=== PATIENT | male | born 1950 | race Hispanic/Latino ===

== ENCOUNTER → 2019-11-18 | Outpatient (CLI) | payer OTHER, MEDICARE ==
[~2019-11-18] MED LIST: ATORVASTATIN CA20 MG PO; IBUPROFEN400 MG PO
--- NOTE | 2019-11-18 16:44 | Diagnostic Imaging Report ---
EXAMINATION: KNEE RIGHT 1-2 VIEWS, KNEES STANDING AP VIEW INDICATION: Osteoarthritis COMPARISON: None FINDINGS: AP, lateral and sunrise views of the right knee demonstrate no acute fracture or dislocation. Alignment appears anatomic. No substantial degenerative change. No joint effusion. Standing AP view of the left knee demonstrates mild medial compartment degenerative changes. No acute osseous injury. IMPRESSION: No acute osseous injury. Mild left knee medial compartment degenerative changes. Signed by: Rafita Guan MD on 11/18/2019 4:41 PM
== END ==
LOC: RAD 15:53
PROVIDERS: ATTEND Specialist
DX: M17.11 Unilateral primary osteoarthritis, right knee (principal)
CPT/HCPCS: 73565

== ENCOUNTER → 2019-11-18 | Outpatient (CLI) | payer OTHER, MEDICARE ==
[2019-11-18 15:28] LABS: BASOPHILS # (AUTO) 0.1 (0.0-0.1); BASOPHILS % 0.9 % (0.0-1.0); EOSINOPHILS # (AUTO) 0.4 (0.0-0.4); EOSINOPHILS % 6.3 % (0.0-6.0); HEMATOCRIT 39.6 % (38.2-49.6); HEMOGLOBIN 13.6 g/dL (14.0-18.0); LYMPHOCYTES # (AUTO) 1.6 (1.0-3.2); MEAN CORPUSCULAR HEMOGLOBIN 29.4 pg (28-32); MEAN CORPUSCULAR HGB CONC 34.3 g/dL (31-35); MEAN CORPUSCULAR VOLUME 85.5 fL (81-99); MONOCYTES # (AUTO) 0.5 (0.2-0.8); MONOCYTES % 8.4 % (4.4-11.3); NEUTROPHILS # (AUTO) 3.1 (2.1-6.9); NEUTROPHILS % 56.2 % (38.7-80.0); PLATELET COUNT 205 x10e3/uL (140-360); RED BLOOD COUNT 4.63 x10e6/uL (4.3-5.7); RED CELL DISTRIBUTION WIDTH 13.6 % (11.7-14.4)
[2019-11-18 15:36] LABS: CLARITY,URINE SL CLOUDY (CLEAR); COLOR,URINE YELLOW (YELLOW); KETONES,URINE TRACE (NEGATIVE); LEUKOCYTE ESTERASE ,URINE NEGATIVE (NEGATIVE); NITRITE,URINE NEGATIVE (NEGATIVE); PROTEIN,URINE DIPSTICK NEGATIVE (NEGATIVE); URINE UROBILINOGEN 0.2 mg/dL (0.2 - 1)
[2019-11-18 15:37] LABS: BILIRUBIN,URINE NEGATIVE (NEGATIVE)
[2019-11-18 15:46] LABS: ANION GAP 11.1 mmol/L (8-16); BLOOD UREA NITROGEN 14 mg/dL (7-26); BUN/CREATININE RATIO 13 (6-25); CALCIUM 9.8 mg/dL (8.4-10.2); CARBON DIOXIDE 27 mmol/L (22-29); CHLORIDE 105 mmol/L (98-107); CREATININE, SERUM 1.07 mg/dL (0.72-1.25); EST GLOMERULAR FILTRATION RATE > 60 ML/MIN (60-); GLUCOSE 97 mg/dL (74-118); POTASSIUM 4.1 mmol/L (3.5-5.1); SODIUM 139 mmol/L (136-145)
--- NOTE | 2019-11-18 16:43 | Diagnostic Imaging Report ---
EXAMINATION: CHEST 2 VIEWS INDICATION: Pre-operative COMPARISON: None FINDINGS: LINES/TUBES:None LUNGS:There are diffuse nodular opacities throughout both lungs in a miliary distribution. PLEURA:No pleural effusion or pneumothorax. MEDIASTINUM:The cardiomediastinal silhouette appears normal in size and shape. BONES/SOFT TISSUES:No acute osseous injury. ABDOMEN:No free air under the diaphragm. IMPRESSION: Diffuse bilateral pulmonary nodules in a miliary distribution which may represent atypical infectious etiologies versus diffuse hematogenous metastatic disease. Recommend further evaluation with chest CT. Signed by: Rafita Guan MD on 11/18/2019 4:39 PM
== END ==
LOC: DX 14:13 → EDSTATUS 11-22 12:30
PROVIDERS: ATTEND Specialist
DX: Z01.818 Encounter for other preprocedural examination (principal); M17.11 Unilateral primary osteoarthritis, right knee; Z53.8 Procedure and treatment not carried out for other reasons
CPT/HCPCS: 36415; 71046; 80048; 81003; 85025; 86850; 86900; 86920; 93005

== ENCOUNTER → 2019-11-18 | Outpatient (CLI) | payer OTHER | LOC: RAD 14:32 | PROVIDERS: ATTEND Specialist | DX: M17.11 Unilateral primary osteoarthritis, right knee (principal) ==

== ENCOUNTER 2020-02-15 06:46 | Observation (INO) | payer OTHER ==
[2020-02-10 14:48] LABS: BASOPHILS # (AUTO) 0.1 (0.0-0.1); BASOPHILS % 1.1 % (0.0-1.0); EOSINOPHILS # (AUTO) 0.4 (0.0-0.4); EOSINOPHILS % 5.4 % (0.0-6.0); HEMATOCRIT 42.2 % (38.2-49.6); HEMOGLOBIN 14.2 g/dL (14.0-18.0); LYMPHOCYTES # (AUTO) 1.9 (1.0-3.2); LYMPHOCYTES % 26.6 % (18.0-39.1); MEAN CORPUSCULAR HEMOGLOBIN 28.6 pg (28-32); MEAN CORPUSCULAR HGB CONC 33.6 g/dL (31-35); MEAN CORPUSCULAR VOLUME 84.9 fL (81-99); MONOCYTES # (AUTO) 0.5 (0.2-0.8); MONOCYTES % 7.4 % (4.4-11.3); NEUTROPHILS # (AUTO) 4.2 (2.1-6.9); NEUTROPHILS % 59.2 % (38.7-80.0); PLATELET COUNT 222 x10e3/uL (140-360); RED BLOOD COUNT 4.97 x10e6/uL (4.3-5.7); RED CELL DISTRIBUTION WIDTH 13.4 % (11.7-14.4)
[2020-02-10 14:50] LABS: CLARITY,URINE CLEAR (CLEAR); COLOR,URINE YELLOW (YELLOW)
[2020-02-10 14:51] LABS: BILIRUBIN,URINE NEGATIVE (NEGATIVE); KETONES,URINE NEGATIVE (NEGATIVE); LEUKOCYTE ESTERASE ,URINE NEGATIVE (NEGATIVE); NITRITE,URINE NEGATIVE (NEGATIVE); PROTEIN,URINE DIPSTICK NEGATIVE (NEGATIVE); URINE UROBILINOGEN 0.2 mg/dL (0.2 - 1)
[2020-02-10 15:05] LABS: BLOOD UREA NITROGEN 14 mg/dL (7-26); BUN/CREATININE RATIO 15 (6-25); CALCIUM 9.7 mg/dL (8.4-10.2); CARBON DIOXIDE 20 mmol/L (22-29); CHLORIDE 107 mmol/L (98-107); CREATININE, SERUM 0.95 mg/dL (0.72-1.25); EST GLOMERULAR FILTRATION RATE > 60 ML/MIN (60-); GLUCOSE 98 mg/dL (74-118); SODIUM 136 mmol/L (136-145)
[~2020-02-15] VITALS: Ht 180.3 cm; Wt 128.5 kg
[2020-02-15] MEDS ORDERED: CLINDAMYCIN PHOS 900MG/ 50ML 50 ML IV ONE (07:20)
[2020-02-15] MEDS ORDERED: BACITRACIN 50,000 UNIT VIAL ONE (10:20)
[2020-02-15] MEDS ORDERED: IBUPROFEN 800MG/ 200ML 200 ML IV ONE (13:51)
[2020-02-15] MEDS ORDERED: SODIUM CHLORIDE 0.9% 1000ML 1,000 ML IV SCH (15:00)
[2020-02-15] MEDS ORDERED: HYDROMORPHONE 0.2MG/ML-SOD CHL 30ML PCA SYRINGE IV PRN (15:00)
[2020-02-15] MEDS ORDERED: ONDANSETRON HCL INJ 2MG/ML 2ML 2 MG/ML VIAL IV PRN (15:00)
[2020-02-15] MEDS ORDERED: HYDROMORPHONE 2MG/ML 2 MG/ML ML ONE (15:22)
[2020-02-15 16:00] VITALS: BP 108/63
--- NOTE | 2020-02-15 16:00 | NUR ---
Pt received from PACU at this time. Pt is aox3 and able to verbalize needs. Pt had right total knee done this afternoon. Pt is on FLOAT TENDER pump at this time with dilaudid. Dressing to right knee is dry and intact.
--- NOTE | 2020-02-15 16:03 | NUR ---
FAXED POST OP REPORT TO [facility] PER REQUEST OF [facility] TO [phone]
--- NOTE | 2020-02-15 16:04 | NUR ---
CONFIRMED DME WITH [employer] FROM [employer], CPM, WALKER , ELEVATED TOILET SEAT AND 3 IN
[2020-02-15 16:26] VITALS: BP 108/63
[2020-02-15] MEDS ORDERED: ACETAMINOPHEN 1000 MG/100 ML IV PRN (18:00)
[2020-02-15] MEDS ORDERED: DEXAMETHASONE SOD PHOS INJ 4 MG/ML VIAL ONE (18:43)
[2020-02-15] MEDS ORDERED: ACETAMINOPHEN 1000 MG/100 ML IV ONE (18:43)
[2020-02-15] MEDS ORDERED: PROPOFOL IV EMULSION 10 MG/ML 20 ML VIAL ONE (18:43)
[2020-02-15] MEDS ORDERED: SEVOFLURANE INHAL SOLN 250 ML PEN BTL ONE (18:43)
[2020-02-15] MEDS ORDERED: LIDOCAINE HCL 2% LOCAL INJ 5 ML SDV VIAL INJ ONE (18:43)
[2020-02-15] MEDS ORDERED: EPHEDRINE SULFATE INJ 50 MG/ML VIAL ONE (18:43)
[2020-02-15] MEDS ORDERED: ONDANSETRON HCL INJ 2MG/ML 2ML 2 MG/ML VIAL ONE (18:43)
--- NOTE | 2020-02-15 19:00 | NUR ---
RECEIVED REPORT FROM PREVIOUS NURSE. CALL LIGHT WITHIN REACH. PATIENT IN BED. BACKUP ENGINEER PUMP ACTIVE.
--- NOTE | 2020-02-15 19:16 | Diagnostic Imaging Report ---
EXAM: KNEE RIGHT 1-2 VIEWS DATE: 02/15/2020 4:57 PM INDICATION: ^POST OP ^[id number] ^[id number] ^IN PACU COMPARISON: Right knee, 11/18/2019 FINDINGS: Interval right knee arthroplasty with intact appearing tibial and femoral components. No displaced fractures. Skin amanda are seen over the anterior knee with a small amount of air in the subcutaneous tissues and joint space compatible with recent surgery. There is a small linear density projected inferior to the patella on the lateral view, projected in the soft tissues on AP view. Findings were discussed with Dr. Morales on 02/15/2020 at 7:00 PM. IMPRESSION: Interval right knee arthroplasty. A small linear density or object is projected in the soft tissues inferior to the patella. Signed by: Dr. Laz Rawls M.D. on 02/15/2020 7:13 PM
--- NOTE | 2020-02-15 19:45 | NUR ---
Dictated consult: [id number]
[2020-02-15 20:00] VITALS: BP 112/75
[2020-02-15] MEDS: CLINDAMYCIN PHOS 900MG/ 50ML 50 ML IV SCH (20:03)
--- NOTE | 2020-02-15 20:10 | Consultation ---
DATE OF CONSULTATION: 02/15/2020 REASON FOR CONSULTATION: Medical management. HISTORY OF PRESENT ILLNESS: This is a 69-year-old white man, who presented to [facility] with diagnosis of advanced right knee degenerative joint disease. Today, the patient underwent right total knee arthroplasty that was performed by Dr. Yosvany Morales. The patient currently voiced no complaints. The patient underwent a complete blood count and basic metabolic profile on February 10, 2020 and they were both unremarkable. REVIEW OF SYSTEMS: GENERAL: Weight has been stable. No fever or chills. HEENT: No headaches. No visual changes. CARDIOVASCULAR/RESPIRATORY: No chest pain. No short of breath or cough. GI: No nausea, vomiting, diarrhea, or constipation. : No UTI or BPH symptoms. Cee catheter is removed. NEUROMUSCULAR: He does have some pain in his right knee. ALLERGIES: PENICILLIN. FAMILY HISTORY: Father of leukemia. SOCIAL HISTORY: He is and lives with his . 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 The patient states he drinks socially, but has not drank much alcohol since October 2019. The patient states he does chew tobacco. SURGICAL HISTORY: 1. Right total knee replacement today. 2. Right ankle open reduction and internal fixation at 22. 3. 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 PAST MEDICAL HISTORY: 1. Right knee degenerative joint disease. 2. Obesity. 3. Hyperlipidemia. MEDICATIONS: 1. Atorvastatin 20 mg at bedtime. 2. Ibuprofen 800 mg q.6 hours p.r.n. pain. PHYSICAL EXAMINATION: GENERAL: He is awake, alert, and fully oriented. He is very pleasant, cooperative. VITAL SIGNS: Height 5 feet 11 inches, weighs 278 pounds, BMI 38. Blood pressure 108/64, pulse 84, respiratory rate 18, temperature 97.6, and oxygen saturation 96% on room air. INTEGUMENT: Skin is warm and dry. No pallor, jaundice, or diaphoresis. HEENT: Anicteric sclerae with moist mucous membranes. NECK: Supple. CARDIOVASCULAR: Distant heart sounds. Regular rate and rhythm. LUNGS: No rales. No rhonchi. No wheezes. ABDOMEN: Benign. EXTREMITIES: His right lower extremity is currently in a continuous passive motion machine. No edema in legs. NEUROLOGIC: Intact. IMPRESSION: 1. Status post right total knee arthroplasty. 2. Obesity. BMI 38. PLAN: 1. Mobilize therapy. 2. Enoxaparin or Xarelto to prevent deep venous thrombosis. 3. Encourage incentive spirometer usage to prevent atelectasis for pain control. 4. Pain control. I would like to thank, Dr. Yosvany Morales, for this generous consult. I spent 40 minutes in the care of this patient. MD LENA Chakraborty/KARL /[id number] MTDUri
[2020-02-15 20:14] VITALS: BP 108/63
--- NOTE | 2020-02-15 20:18 | NUR ---
CALLED AND TALKED TO DR. CHAUDHARY TO SEE IF HE WANTS THE PATIENT ON A CPM AND HE SAID PUT THE PATIENT ON A CPM AT 40 TO 80.
[2020-02-15 21:29] VITALS: BP 112/75
[2020-02-16] VITALS: BP 131/79
[2020-02-16] MEDS: CLINDAMYCIN PHOS 900MG/ 50ML 50 ML IV SCH ×2 (03:39→11:59)
[2020-02-16 04:00] VITALS: BP 113/74
[2020-02-16 05:27] LABS: BASOPHILS % 0.2 % (0.0-1.0); EOSINOPHILS % 0.4 % (0.0-6.0); HEMATOCRIT 32.3 % (38.2-49.6); HEMOGLOBIN 10.6 g/dL (14.0-18.0); LYMPHOCYTES # (AUTO) 1.4 (1.0-3.2); LYMPHOCYTES % 17.1 % (18.0-39.1); MEAN CORPUSCULAR HEMOGLOBIN 28.6 pg (28-32); MEAN CORPUSCULAR HGB CONC 32.8 g/dL (31-35); MEAN CORPUSCULAR VOLUME 87.1 fL (81-99); MONOCYTES # (AUTO) 0.9 (0.2-0.8); MONOCYTES % 11.2 % (4.4-11.3); NEUTROPHILS % 70.7 % (38.7-80.0); PLATELET COUNT 192 x10e3/uL (140-360); RED BLOOD COUNT 3.71 x10e6/uL (4.3-5.7); RED CELL DISTRIBUTION WIDTH 13.5 % (11.7-14.4)
[2020-02-16 05:50] LABS: ANION GAP 14.1 mmol/L (8-16); BLOOD UREA NITROGEN 13 mg/dL (7-26); BUN/CREATININE RATIO 14 (6-25); CALCIUM 8.4 mg/dL (8.4-10.2); CARBON DIOXIDE 23 mmol/L (22-29); CHLORIDE 103 mmol/L (98-107); CREATININE, SERUM 0.91 mg/dL (0.72-1.25); EST GLOMERULAR FILTRATION RATE > 60 ML/MIN (60-); GLUCOSE 138 mg/dL (74-118); POTASSIUM 4.1 mmol/L (3.5-5.1); SODIUM 136 mmol/L (136-145)
--- NOTE | 2020-02-16 07:11 | NUR ---
GAVE BEDSIDE SHIFT REPORT TO ONCOMING NURSE. CALL LIGHT WITHIN REACH. PATIENT IN BED. HOURLY ROUNDING PERFORMED.
--- NOTE | 2020-02-16 07:46 | NUR ---
DR CHAUDHARY OFFICE PREARRANGED FOLLOWING DISCHARGE PLAN OF: HOME HOME HEALTH WITH [facility] CONFIRMED WITH INTAKE [phone] DME 3 IN ONE COMMODE, CPM, ELEVATED TOILET SEAT AND ROLLING WALKER WITH WHEELS. PROVIDED BY [employer] [phone] SHAHZAD SIGNED AND ON CHART COPY LEFT WITH PATIENT GAVE CARD FOR QUESTIONS AND OR CONCERNS.
[2020-02-16 07:53] VITALS: BP 126/69
[2020-02-16] MEDS ORDERED: HYDROCODONE/APAP 5MG-325MG TAB PO PRN ×3 (09:15→09:31)
[2020-02-16 09:20] VITALS: BP 126/69
--- NOTE | 2020-02-16 09:23 | NUR ---
Calderon catheter discontinued per physician orders. Well tolerated per patient. Light yellow clear urine noted in calderon bag at time of removal.
[2020-02-16] MEDS ORDERED: ACETAMINOPHEN 1000 MG/100 ML IV PRN ×2 (09:45)
--- NOTE | 2020-02-16 10:32 | Discharge Summary ---
HOSPITAL COURSE: This is a 69-year-old white man, who presented to [facility] with diagnosis of advanced right knee degenerative joint disease. During this hospitalization, the patient underwent successful right total knee arthroplasty. The surgery was performed by Dr. Yosvany Morales. The patient's brief hospitalization was unremarkable. The patient's condition on discharge is stable. The patient was ambulating with physical therapy on discharge. DISCHARGE MEDICATIONS: 1. Xarelto 10 mg daily for a total of 21 days. 2. Hydrocodone/acetaminophen 5/325 mg 1 to 2 pills every 4 hours as needed for pain, 40 prescribed, no refills. 3. Atorvastatin 20 mg at bedtime. FOLLOWUP INSTRUCTIONS: The patient was instructed to follow up with Dr. Yosvany Morales within 1-2 weeks and with his primary care physician within 2 weeks. The patient was instructed to avoid all NSAIDs and aspirin while on Xarelto therapy. DISCHARGE DIAGNOSES: 1. Status post right total knee arthroplasty. 2. Obesity, BMI 38. 3. Hyperlipidemia. ADMIT DIAGNOSES: 1. Advanced right knee arthritis. 2. Obesity, BMI 38. MD TED ChakrabortyO/KARL /[id number] cc: Yosvany Morales MD MTDD
[2020-02-16 13:07] VITALS: BP 157/76
--- NOTE | 2020-02-16 13:19 | NUR ---
Pt discharged home at this time. Pt was discharge with home health and CPM, bedside commode, walker. Pt and verbalized understanding of all discharge instructions and follow up appointments. Dressing to right knee is dry and intact.
--- NOTE | 2020-02-16 15:54 | Operative Report ---
DATE OF PROCEDURE: 02/15/2020 SURGEON: Yosvany Morales MD PREOPERATIVE DIAGNOSIS: End-stage arthritis, right knee. POSTOPERATIVE DIAGNOSIS: End-stage arthritis, right knee. OPERATIONS/PROCEDURES PERFORMED: The patient underwent a right total knee arthroplasty with a size G femoral component, a size 6 tibial component, a 12 mm tibial insert, and a 38 mm patella button. MORNING CAREGIVER: There was no video library assistant. ANESTHESIA: General endotracheal intubation anesthesia as well as local nerve block. IV FLUIDS: As per the Anesthesia record. BLOOD LOSS: Approximately 100 mL. COMPLICATIONS: None. BRIEF DESCRIPTION OF THE PATIENT'S OPERATIVE PROCEDURE: Mr. Zimmerman was taken to the operating room and placed in the supine position on the operating table. Following induction of general anesthesia as well as endotracheal intubation, the patient's right lower extremity was examined under anesthesia. He was found to have a mild effusion within the right knee joint. He had near full extension and flexion greater than 125 degrees. There was patellofemoral crepitus throughout the range of motion of the knee joint. The patient's lower extremity was prepped and draped in standard surgical fashion. The case was begun by creating a longitudinal incision over the anterior aspect of the knee joint. This incision was carried through skin and subcutaneous tissues to the level of the extensor mechanism. Full-thickness skin flaps were then elevated both medially and laterally to expose the extensor mechanism. A medial incision along the extensor mechanism was then performed and the patella was everted laterally. Fat pad was excised. Osteophytes were removed from the patella as well as the femur. The patella was then measured for later reaming. The knee was placed in flexion and retractors were placed about the knee joint to protect vital neurovascular structures. The anterior horns of medial and lateral meniscus were resected. The anterior and posterior cruciate ligaments were also resected at this time. A drill was used to create a channel for the intramedullary femoral cutting guide. The cutting guide was then placed within the femur and the distal femoral cutting block was affixed to the femur. The distal femoral cuts were then performed. The sizing block was then affixed to the distal femur and the femur was sized. The 4-in-1 cutting block was then affixed to the femur and the cuts were performed without difficulty. The intercondylar notch cutting block was then affixed to the femur and the intercondylar notch cut was performed. Attention was then turned to the tibia. The external tibial alignment guide was affixed to the tibia and adjusted appropriately. The proximal tibia was cut. The keel cutting device was then affixed to the tibia and the keel cut was performed. Trial femoral and tibial components were inserted in the knee and the soft tissues were balanced. A trial tibial insert was placed with the tibial tray and the knee was placed through range of motion and found to be stable. The patella was then reamed and the patella button was affixed to the undersurface of the patella. The patellofemoral joint was then reduced, and the knee was placed through range of motion. The patella was found to track appropriately. All the trial components were removed. Cement was mixed on the back table. The bone was prepared for cementation, and the wounds were copiously irrigated. The femoral, tibial, and patellar components were then cemented into place. Once the cement had cured, the trial tibial tray was removed and the actual tibial insert was then inserted without difficulty. It was again placed through range of motion and found to have excellent flexion and extension and no evidence of instability. The wound was again copiously irrigated using a pulse lavage system. The extensor mechanism was repaired with nonabsorbable sutures. The remaining soft tissues were closed in a multilayer fashion. Sterile dressings were applied, and the patient was then awakened and taken to postanesthesia care in stable condition. MD EDER Campa/KARL /[id number]
[2020-02-16] MEDS ORDERED: RIVAROXABAN 10 MG TABLET PO SCH (17:00)
== END 2020-02-16 13:19 | disposition home or self-care (01) ==
LOC: OR 06:46 → PACU V 14:53 → MED/SURG 16:01
PROVIDERS: ADMIT Specialist; ATTEND Specialist
DX: M17.11 Unilateral primary osteoarthritis, right knee (principal); F10.10 Alcohol abuse, uncomplicated; F17.210 Nicotine dependence, cigarettes, uncomplicated; E66.9 Obesity, unspecified; Z68.38 Body mass index [BMI] 38.0-38.9, adult; Z85.828 Personal history of other malignant neoplasm of skin; E78.5 Hyperlipidemia, unspecified
CPT/HCPCS: 27447; 36415 ×2; 73560; 80048 ×2; 81003; 82948; 85025 ×2; 86850; 86900; 86920; 87635; 97110; 97116 ×2; 97139; 97162; 97530; G0378 ×2; J0131 ×2; J1100; J1170; J2001; J2405; J2704; J7030

== ENCOUNTER → 2020-03-06 | Outpatient (RCR) | payer OTHER | LOC: PT 14:24 | PROVIDERS: ATTEND Specialist | DX: Z96.651 Presence of right artificial knee joint (principal); M25.561 Pain in right knee; M25.661 Stiffness of right knee, not elsewhere classified; R26.2 Difficulty in walking, not elsewhere classified; M62.81 Muscle weakness (generalized) ==

== ENCOUNTER → 2020-04-06 | Outpatient (RCR) | payer OTHER | LOC: PT 03-08 09:08 | PROVIDERS: ATTEND Specialist | DX: Z96.651 Presence of right artificial knee joint (principal); M17.11 Unilateral primary osteoarthritis, right knee; M25.561 Pain in right knee; M62.81 Muscle weakness (generalized) ==

== ENCOUNTER → 2020-05-07 | Outpatient (RCR) | payer OTHER | LOC: PT 04-10 09:05 | PROVIDERS: ATTEND Specialist | DX: Z96.651 Presence of right artificial knee joint (principal); M25.561 Pain in right knee; R26.2 Difficulty in walking, not elsewhere classified | CPT/HCPCS: 97139 ==

== ENCOUNTER 2020-06-01 09:00 | Outpatient (RCR) | payer OTHER | END 2020-06-06 | LOC: PT 09:00 | PROVIDERS: ATTEND Specialist | DX: Z96.651 Presence of right artificial knee joint (principal); M25.561 Pain in right knee; M25.661 Stiffness of right knee, not elsewhere classified; M62.81 Muscle weakness (generalized); R26.2 Difficulty in walking, not elsewhere classified | CPT/HCPCS: 97139 ==